=== PATIENT | male | born 1940 | race Caucasian/White ===

== ENCOUNTER 2017-05-28 10:38 | Day surgery (SDC) | payer MEDICARE, OTHER ==
[2017-05-27 16:13] VITALS: BMI 33.7
[2017-05-28] MEDS ORDERED: Levofloxacin 500 mg/D5W 100 ml Premix Bag ONE (12:41)
[2017-05-28] MEDS ORDERED: Promethazine HCl 25 MG/ML VIAL ONE (13:44)
[2017-05-28] MEDS ORDERED: Fentanyl 250 MCG/5 ML VIAL ONE (13:44)
[2017-05-28] MEDS ORDERED: Phenylephrine 10 MG/NS 250 ML 0 ML ONE (13:44)
[2017-05-28] MEDS ORDERED: Glycopyrrolate 0.2 MG/ML 5 ML SYRINGE ONE (14:06)
[2017-05-28] MEDS ORDERED: Lidocaine 1% PF 5 ML VIAL ONE (14:06)
[2017-05-28] MEDS ORDERED: Ondansetron HCl/PF 4 MG/2 ML Vial ONE (14:06)
[2017-05-28] MEDS ORDERED: Propofol 200 MG/20 ML VIAL ONE (14:06)
[2017-05-28] MEDS ORDERED: ePHEDrine/0.9% NaCl/PF SYRINGE 50 mg/10 ml ONE (14:06)
[2017-05-28] MEDS ORDERED: PHENYLEPHRINE-NS 100 MCG/ML 10 ML SYRINGE ONE (14:06)
--- NOTE | 2017-05-28 14:08 | RAD ---
KUB: Date: 05/28/17 HISTORY: Preop cystogram. COMPARISON: 05/23/17 retrograde study. FINDINGS: The bowel gas pattern appears nonobstructed. Postoperative change of spine noted. IVC filter present . A left renal stent is in place. There are faint calcifications overlying the lower pole of the lef t [id number], most compatible with renal calculi. IMPRESSION: 1. Left ureteral stent in place. 2. Lower pole left renal calculi. POS: C
[2017-05-28] MEDS ORDERED: hydrALAZINE 20 MG/ML VIAL ONE (15:53)
[2017-05-28] MEDS ORDERED: Oxybutynin 5 MG TAB ONE (16:25)
[2017-05-28] MEDS ORDERED: Phenazopyridine HCl 97.5 MG TABLET ONE (16:25)
--- NOTE | 2017-05-28 16:57 | OP ---
DATE OF SURGERY: 05/28/2017 SERVICE: Urology. SURGEON: Claude Delvalle M.D. PREOPERATIVE DIAGNOSES: Bilateral nephrolithiasis, renal pelvis lesion. POSTOPERATIVE DIAGNOSES: Bilateral nephrolithiasis, renal pelvis lesion. PROCEDURES PERFORMED: Left ureteroscopy, laser lithotripsy of stone, basket extraction of stone, an d replacement of 6 x 26 double-J stent, as well as renal pelvis biopsy. INDICATIONS FOR PROCEDURE: Mr. Ren is a 77-year-old white male who initially came to see me fo r hematuria and flank pain. His CT had demonstrated bilateral nephrolithiasis. We had already perf ormed a left-sided ureteroscopy with fragmentation of majority of stone; however, there were several large pieces that were still left that I had not cleared and due to significant stone debris, visua lization was poor; therefore, we elected to come back today for his repeat ureteroscopy and clearanc e of residual stone. Of note, there was an unusual appearing lesion within the renal pelvis at the time of his ureteroscopy that we had planned to biopsy at the last surgery; however, due to the sign ificant decrease in visibility, we elected to do the biopsy on this visit. Risks and benefits of th e procedure had been discussed and we agreed to proceed forward. DESCRIPTION OF PROCEDURE: After identification of armband and verification of consent, the patient was brought back to the operating room where he underwent general anesthesia with endotracheal intub ation. He was then placed in dorsal lithotomy position and prepped and draped in usual sterile fash ion. After appropriate timeout, a lubricated 22-[place]an rigid cystoscope was introduced per urethra into the bladder. The 6 x 26 double-J stent was seen emanating from the left ureteral orifice which was grasped with flexible graspers and removed to the level of the urethral meatus. Attempts to pa ss a sensor wire in did cause accidental removal of the entire stent. Therefore, the stent was ricci nino in its entirety and discarded. The cystoscope was then inserted back into the bladder and the s ensor wire attempted to pass up into the ureter. It was difficulty passing the sensor wire past the distal ureter and there was concern that there may be a stone fragment in the distal ureter; theref ore, the cystoscope and wire were removed and a semirigid ureteroscope was brought in through the ur ethra and into the left ureter. There was no stone encountered, but there was small shelf of tissue which was likely resulting in the hangup from the wire. As such, the ureteroscope was used to carey gate around this tissue shelf and into the ureter. There were no stone fragments seen here. The wi re was then passed up uneventfully up into the renal pelvis. The ureteroscope was then withdrawn an d the dual-lumen catheter brought in and passed over the sensor wire up to the level of the proximal ureter. An Amplatz Super Stiff wire was then passed to the second lumen up to the level of the nathaniel al pelvis and the dual lumen removed. The sensor wire was then affixed to the drapes as a safety wi re and a 13/15 x 42 cm ureteral access sheath was brought in through the Amplatz Super Stiff wire an d advanced to the proximal ureter. The inner cannula and the Super Stiff wire were then removed sonia ving the sensor wire and the outer sheath of the ureteral access sheath in place. An ureteroscope w ith the BIGopsy forceps was then backloaded onto the ureteroscope and brought in through the uretera l access sheath into the renal pelvis. The lesion was seen and looked larger than previous. I susp ect it is likely inflammatory, but given the unusual nature and appearance of it and the very polypo id type appearance I wanted to ensure that this was not an urothelial carcinoma. A biopsy was taken through the center of this lesion and brought out for routine pathologic evaluation. The BIGopsy w as then disassembled and removed and a 200 micron laser fiber brought into the ureteroscope. The bas e of the biopsy was fulgurated and the residual tumor was excised using the laser fiber. The fragme nts were relatively small and I did not feel that these would be viable to bring out for pathologic evaluation as it would be difficult to grasp in the basket. Therefore, the base and the lesion were cauterized completely with the laser fiber until the entire lesion was destroyed. There were no ot her unusual appearing lesions within the renal pelvis. The areas of the original stones were both i nspected. The mid pole lesion where the larger stone was present, there was approximately a 6-8 mm stone still present that was in a fairly large piece. The laser fiber was then used to dust the sto ne into small tiny fragments. The fiber was then withdrawn and a 1.9 [place]an 0 tip nitinol basket wa s used to pull up the larger fragments. Another renal bandar which had additional stone fragment was also basketed to remove some larger stone. Upon final inspection, there did not appear to be any s tone fragments larger than 1-2 mm. I felt that this all would pass as the ureter was adequately dil ated from the previous stent. Final pyeloscopy did not reveal any other large fragments. I felt co mfortable and pull back ureteroscopy did not demonstrate any additional stones within the ureter. T he sheath and the ureteroscope were then removed and the cystoscope was backloaded over the sensor w heidy back into the bladder. A 6 x 26 double-J stent was then advanced over the sensor wire up to the level of the renal pelvis. The wire was then removed leaving a good curl in the renal pelvis and g ood curl in the bladder. The bladder was emptied and the cystoscope removed. The patient was then awakened and taken to PACU for recovery in stable condition. COMPLICATIONS: None. ESTIMATED BLOOD LOSS: Minimal. RETAINED TUBES AND DRAINS: A 6 x 26 double-J stent on the left. SPECIMENS: Left renal pelvis biopsy and stone for stone analysis. DISPOSITION: The patient will go to PACU and then be discharged home. He will then follow up with me on an outpatient basis to go over his pathology results and stone analysis and stone prevention. We will make plans to treat his right-sided stone at a future date when the patient is ready and th at side is asymptomatic.
--- NOTE | 2017-05-28 17:05 | RAD ---
RETROGRADE PYELOGRAM 05/28/17 COMPARISON: 05/23/17 HISTORY: Left ureteral stone. FINDINGS: The single provided image demonstrates no contrast media. There is a wire overlying the expected loca tion of the left ureter and left renal collecting system. Near the proximal aspect of the wire is a s mall calcification suggesting a stone associated with the left kidney. There is evidence of prior fus ion surgery at the lumbosacral junction. Prior kyphoplasty changes are seen within the lumbar spine. An IVC filter is present. IMPRESSION: Retrograde pyelogram as detailed above. POS: ABELARDO
== END 2017-05-29 19:30 | disposition home or self-care (01) ==
LOC: SDC 10:38
PROVIDERS: ATTEND Urology
PROC: 0TF78ZZ Fragmentation in Left Ureter, Via Natural or Artificial Opening Endoscopic (ICD-10-PCS; principal; 2017-05-28)
PROC: 0T778DZ Dilation of Left Ureter with Intraluminal Device, Via Natural or Artificial Opening Endoscopic (ICD-10-PCS; 2017-05-28)
DX: N20.1 Calculus of ureter (principal); C65.2 Malignant neoplasm of left renal pelvis; I10 Essential (primary) hypertension; D68.9 Coagulation defect, unspecified; Z79.01 Long term (current) use of anticoagulants; Z79.899 Other long term (current) drug therapy; I48.91 Unspecified atrial fibrillation; G47.33 Obstructive sleep apnea (adult) (pediatric); Z95.0 Presence of cardiac pacemaker; Z90.49 Acquired absence of other specified parts of digestive tract; Z80.9 Family history of malignant neoplasm, unspecified
CPT/HCPCS: 51798; 52356; 74018; 74420; 82365; 88300; 88305; C1769; 74000; J0360; J1956; J2001; J2405; J2550; J2704; J3010; J7620